=== PATIENT | male | born 1955 | race Caucasian/White ===

== ENCOUNTER 2021-12-14 15:16 | Emergency (ER) | payer MEDICARE, OTHER, SELFPAY ==
--- NOTE | ~2021-12-14 | XR_ITS ---
EXAMINATION: [id number] INDICATION: Right-sided chest pain after fall TECHNIQUE: A frontal view of the chest and 3 views of the right ribs were obtained. COMPARISON: 04/03/2008 FINDINGS: The lungs are free of acute opacities. There is no pleural effusion or pneumothorax. The ca rdiomediastinal silhouette is normal. No displaced rib fracture is identified. IMPRESSION: 1. No acute cardiopulmonary abnormality or evidence of displaced rib fracture. Reviewed, dictated and finalized at location B.
--- NOTE | 2021-12-14 15:25 | ED.LOWEXIN ---
HPI - Extremity Injury (Lower) General Chief Complaint: Wound/Laceration Stated Complaint: Right leg pain and right rib pain Time Seen by Provider: 12/14/21 15:25 Source: patient Mode of arrival: ambulatory Limitations: no limitations History of Present Illness HPI Narrative: Mr. Padron is a 65-year-old male patient presenting to the clinic today with complaints abrasions to the right anterior leg and right rib pain after falling in the garden bed at home yesterday. He reports the worst pain is in his right ribs. Reports that he has a sharp pain with sneezing, coughing, and twisting. Denies much pain with deep inspiration. Rates pain a 3 out of 4 on a 10 scale while resting. Related Data Home Medications Medication Instructions Recorded Confirmed aspirin [Adult Low Dose Aspirin] 81 mg PO DAILY 12/14/21 12/14/21 atorvastatin 40 mg PO DAILY 12/14/21 12/14/21 cholecalciferol (vitamin D3) 1,000 mg PO DAILY 12/14/21 12/14/21 citalopram 20 mg PO DAILY 12/14/21 12/14/21 empagliflozin [Jardiance] 25 mg PO DAILY 12/14/21 12/14/21 famotidine 40 mg PO DAILY 12/14/21 12/14/21 hydrochlorothiazide 12.5 mg PO DAILY 12/14/21 12/14/21 lisinopril 10 mg PO DAILY 12/14/21 12/14/21 metformin 500 mg PO DAILY 12/14/21 12/14/21 sitagliptin [Januvia] 100 mg PO DAILY 12/14/21 12/14/21 Allergies Allergy/AdvReac Type Severity Reaction Status Date / Time erythromycin base Allergy Hives Verified 12/14/21 15:36 Review of Systems Review of Systems: Pertinent positives per HPI. Patient denies any fever, chills, rash, headache, visual changes, dizziness, cough, runny nose, sore throat, shortness of breath, chest pain, palpitations, nausea, vomiting, diarrhea, constipation, abdominal pain, or any urinary issues. PMFSH Comments At the time of my signature, I reviewed and agree with the nursing past medical, surgical, social, and family history. There is no relevant family history pertinent to the patient complaint. Exam Narrative: General: Well-developed, well nourished, in no apparent distress Head: Normocephalic, atraumatic Chest: Grossly normal appearance, even rise and fall of chest with inspiration and expiration, tender to palpation over the anterior right fifth/sixth ribs just below the breast. Pain starts from the lateral point of the rib to the proximal rib. Sharp pain with twisting and bending. Cardio: Regular rate and rhythm, s1 and s2 normal, no murmur appreciated. Resp: Clear to auscultation bilaterally, no rhonchi, rales, wheezing or rubs. Musculoskeletal: No deformity of the right lower extremity, scabbed over non- infected abrasions noted to the right anterior and lateral lower leg, non-tender to palpation, grossly normal range of motion, muscle strength strong and equal, peripheral pulse strong, no edema, no cyanosis, normal gait and station Course Course Emergency Course: Portions of this record may have been created with voice recognition software. Level of Care: Express Care Visit Vital Signs Vital signs: Vital signs reviewed MDM - Extremity Injury (Lower) MDM Narrative Medical decision making narrative: At the time of assessment patient had tenderness to palpation over the right anterior fifth and sixth ribs, x-ray was completed and this was negative for any fracture or malalignment of the ribs. I suspect rib contusion with potential muscle strain. We will place the patient on a course of naproxen and have him splint during coughing, sneezing, twisting, or bending. Denies any bony tenderness to right lower leg so an x-ray was not completed at this time but he does have abrasions to the right lower extremity Differential Diagnosis Differential diagnosis: Likely other (Rib fracture, chest wall contusion, rib contusion, pneumonia, pneumothorax) Imaging Data Attestation: I personally reviewed and interpreted this imaging study as follows: My impression: Negative for rib fracture or any malalignment of the ribs Radiologist's impre
[2021-12-14 15:29] VITALS: BP 145/82; PULSE 93; RESP 16; TEMP 36.8; O2SAT 98
== END 2021-12-14 16:00 | disposition home or self-care (01) ==
PROVIDERS: Emergency Provider Nurse Practitioner Family
DX: S80.811A Abrasion, right lower leg, initial encounter (principal); W19.XXXA Unspecified fall, initial encounter; S20.211A Contusion of right front wall of thorax, initial encounter; Z79.82 Long term (current) use of aspirin; E78.00 Pure hypercholesterolemia, unspecified; I10 Essential (primary) hypertension; E11.9 Type 2 diabetes mellitus without complications
CPT/HCPCS: 71101; 99213; G0463